=== PATIENT | male | born 1990 | race Caucasian/White ===

== ENCOUNTER 2022-06-18 18:19 | Emergency (ER) | payer MEDICAID ==
[2022-06-18] MEDS ORDERED: Ketorolac 30 MG/ML SDV IM ONE (19:19)
== END 2022-06-18 21:23 | disposition home or self-care (01) ==
LOC: JD.ED 18:19
DX: R07.89 Other chest pain (principal)
CPT/HCPCS: 71046; 93005; 96372; 99285; J1885

== ENCOUNTER 2023-03-03 07:56 | Emergency (ER) | payer MEDICAID | END 2023-03-03 09:30 | disposition home or self-care (01) | LOC: JD.ED 07:56 | DX: S83.91XA Sprain of unspecified site of right knee, initial encounter (principal); W11.XXXA Fall on and from ladder, initial encounter; Y92.89 Other specified places as the place of occurrence of the external cause; Y99.0 Civilian activity done for income or pay | CPT/HCPCS: 73564-26-RT; 73564-RT; 99282; 99283 ==

== ENCOUNTER 2023-04-19 08:59 | Day surgery (SDC) | payer OTHER ==
[~2023-04-19 08:59] MED LIST: Lactated Ringers 1,000 ML IV SCH; Sodium Chloride 0.9% 10 ML Syringe FLUSH PRN; Sodium Chloride 0.9% 10 ML Syringe FLUSH SCH
[2023-04-19] MEDS ORDERED: dexmedeTOMIDine HCl 200 MCG/2 ML SDV ONE (10:17)
[2023-04-19] MEDS ORDERED: Ropivacaine 0.5% 5 MG/ML 30 ML SDV ONE (10:17)
[2023-04-19] MEDS ORDERED: EPINEPHrine 1 MG/ML SDV ONE ×2 (10:18→11:49)
[2023-04-19] MEDS ORDERED: Dexamethasone 4 MG/ML 5 ML MDV ONE ×2 (10:18→12:31)
[2023-04-19] MEDS ORDERED: Lidocaine 1% 2 ML ONE (10:18)
[2023-04-19] MEDS ORDERED: fentaNYL 100 MCG/2 ML SDV ONE (10:23)
[2023-04-19] MEDS ORDERED: Midazolam 1 MG/ML 2 ML SDV ONE ×3 (10:23→12:15)
[2023-04-19] MEDS ORDERED: Lidocaine 2% 5 ML SDV ONE (12:13)
[2023-04-19] MEDS ORDERED: Propofol 200 MG/20 ML SDV ONE ×2 (12:13→12:37)
[2023-04-19] MEDS ORDERED: ceFAZolin 2 GM Vial ONE (12:25)
[2023-04-19] MEDS ORDERED: Metoclopramide 10 MG/2 ML SDV ONE (12:31)
[2023-04-19] MEDS ORDERED: Ondansetron 4 MG/2 ML SDV IVPUSH PRN ×2 (12:57→14:17)
[2023-04-19] MEDS ORDERED: Ketorolac 15 MG/ML SDV ONE (13:33)
[2023-04-19] MEDS ORDERED: HYDROmorphone 0.5 MG/0.5 ML Syringe IVPUSH PRN (14:17)
[2023-04-19] MEDS ORDERED: fentaNYL 100 MCG/2 ML SDV IVPUSH PRN (14:17)
[2023-04-19] MEDS ORDERED: Cyclobenzaprine 10 MG Tab PO PRN (14:41)
[2023-04-19] MEDS ORDERED: Acetaminophen/HYDROcodone 325-5 MG Tab PO PRN (14:42)
== END 2023-04-19 15:45 | disposition home or self-care (01) ==
LOC: JD.SDS 08:59
PROVIDERS: ATTEND Orthopaedic Surgery
DX: S83.511A Sprain of anterior cruciate ligament of right knee, initial encounter (principal); S83.241A Other tear of medial meniscus, current injury, right knee, initial encounter; F41.9 Anxiety disorder, unspecified; F17.210 Nicotine dependence, cigarettes, uncomplicated; Z79.899 Other long term (current) drug therapy; X58.XXXA Exposure to other specified factors, initial encounter
CPT/HCPCS: 29881; 29888; 76000; A9270; C1713; C1762; J0171; J0690; J1100; J1170; J1885; J2250; J2704; J2765; J2795; J3010; J7120; 01400; 64447; J3490